=== PATIENT | male | born 1945 | race Caucasian/White ===

== ENCOUNTER 2019-10-19 07:44 | Outpatient (CLI) | payer MEDICARE, SELFPAY ==
--- NOTE | ~2019-10-19 | US_ITS ---
EXAMINATION: US aorta [facility] DATE: 10/19/2019 08:32 INDICATION: Abdominal aortic aneurysm without rupture TECHNIQUE: Grayscale, color Doppler, and pulsed Doppler images of the aorta and common iliac arteries were obtained. COMPARISON: 12/12/2015 FINDINGS: Maximum vascular dimensions are as follows: Proximal aorta: 2.6 cm Mid aorta: 3.2 cm Distal aorta: 2.0 cm Right common iliac artery: 2.0 cm Left common iliac artery: 1.8 cm There is an unchanged 3.2 cm fusiform infrarenal abdominal aortic aneurysm IMPRESSION: 1. Stable fusiform infrarenal abdominal aortic aneurysm. Reviewed, dictated and finalized at location B.
== END 2019-10-19 07:45 | disposition home or self-care (01) ==
PROVIDERS: PCP Internal Medicine; Visit Provider Nurse Practitioner
DX: I71.4 Abdominal aortic aneurysm, without rupture (principal)
CPT/HCPCS: 76706

== ENCOUNTER 2020-01-18 12:58 | Outpatient (NON) | payer MEDICARE, SELFPAY ==
[2020-01-19 20:05] LABS: SARS-CoV-2 RNA PCR Positive
== END 2020-01-18 12:59 ==
LOC: ANHCOVIDDT 13:00
PROVIDERS: Visit Provider Internal Medicine
DX: U07.1 COVID-19 (principal)
CPT/HCPCS: 87635; C9803; U0003

== ENCOUNTER 2020-03-08 00:15 | Day surgery (SDC) | payer MEDICARE, SELFPAY ==
[2020-02-21 09:45] VITALS: BMI 27.8
--- NOTE | 2020-02-21 09:52 | PC.NURSE ---
Patient tested COVID + on January 17 at [facility]. He states he was not hospitalized but had a cough and fever. Patient will not need to be retested for this procedure. COVID test canceled for 03-05-20.
[2020-03-08 06:47] VITALS: BP 133/85; PULSE 84; RESP 18; TEMP 36.3; O2SAT 100; BMI 27.8
[2020-03-08] MEDS: LACTATED RINGERS 1,000 ML 150 ML IV CONT (06:53)
--- NOTE | 2020-03-08 07:42 | WPDANESEPPF ---
Anes - Initial Pre Proc Eval Procedure: Operation Date: 03/08/20 08:00 Proposed Procedures p Colonoscopy - Lucio Carrera DO Date/Time: 03/08/20 07:42 Surgeon: Lucio Carrera DO Pre Op Diagnosis: Positive Cologuard Patient Data Age: 74 Gender: M Height: 6 ft Weight: 93 kg Last Vital Signs Temp 97.3 F L 03/08/20 06:47 Pulse 84 03/08/20 06:47 Resp 18 03/08/20 06:47 BP 133/85 03/08/20 06:47 Pulse Ox 100 03/08/20 06:47 Allergies Allergy/AdvReac Type Severity Reaction Status Date / Time Bgpynbu-Dgl-Rmj Reductase Allergy Unknown Leg cramps Verified 03/08/20 06:46 Inhibitor Home Medications Medication Instructions Recorded Confirmed Type levothyroxine 100 mcg tablet See Rx Instructions .ROUTE 10/31/19 03/08/20 Rx .COMPLEX #90 tablet metoprolol succinate 50 mg See Rx Instructions .ROUTE 10/31/19 03/08/20 Rx tablet,extended release 24 hr .COMPLEX #90 tablet famotidine 20 mg tablet 20 mg PO DAILY #90 tablet 01/04/20 03/08/20 Rx Patient hx anesthesia problems: none Family hx anesthesia problems: none PMFSH Past Medical History Medical History (Updated 03/08/20 @ 07:42 by Rajat Cordero MD) Benign essential hypertension Hypothyroidism (acquired) Mixed hyperlipidemia Family History Family History Father Cerebrovascular accident Family history of heart disease in male family member before age 55 Family history of cardiovascular disease, Onset Age: 91 Sibling Family history of malignant neoplasm Mother Family history of chronic obstructive pulmonary disease, Onset Age: 85 Social History Social History Smoking status: Never smoker Second hand tobacco smoke exposure: No Smoking end date: 02/09/77 Alcohol intake: current Drinks per week: 7 Substance use type: does not use Living arrangements: with family Spiritual care concerns: No Anes - Eval Final PreProcedure Day of Procedure 03/08/20 07:42 Patient weight: overweight Heart: regular rate and rhythm Lungs: clear to auscultation Airway: Mallampati scale class II Neurological: alert and oriented Last oral intake: >/= 8 hours ASA classification: II Emergent: no Anesthetic plan: proceed Anesthesia type and monitoring: general GIVS and standard monitoring Informed Consent: The patient's anesthetic plan and its attendant risks and benefits were discussed with the patient/family/POA. Questions were solicited and answers provided to the satisfaction of the patient/family/POA.
--- NOTE | 2020-03-08 08:04 | PM.IMHP ---
H&P: HPI History of Present Illness Date/Time: 03/08/20 08:04 Chief Complaint: Reason for visit colonoscopy. Narrative: Reason for visit is colonoscopy. This very pleasant gentleman's here at the request of the primary physician. Impression: Your very pleasant gentleman with history of colon polyps. He has a positive stool base DNA test. Does complain rectal bleeding which is most likely perianal in origin. Underlying inflammatory neoplastic disease will be excluded. GERD. HLD. HTN. Hypothyroidism. Skin cancer -melanoma. Status post excision Recommendation: Colonoscopy. History: This very pleasant gentleman is here for colonoscopy. He has remote history of colon polyps. He reports rectal bleeding which usually consists of bright red blood in the stool and tissue. The patient has a positive stool base DNA test. He has a history of reflux disease controlled with medication. Physical examination: General: very pleasant patient in no acute distress. HEENT: Head was normocephalic sclerae is clear mouth without masses neck was supple. Heart: Rate rhythm regular without S3 or S4. Lungs: CTA. Abdomen: Soft with no guarding or rigidity. Bowel sounds were active. Neurologic: Cranial nerves 2 through 12 intact. No focal defects. No clonus. Musculoskeletal system: Revealed no joint tenderness or swelling no muscle atrophy. Extremities: Reveal no significant edema. Skin: Warm and dry with normal turgor. Mental status: intact. Patient is alert and oriented. Review of Systems Review of Systems: All systems reviewed & are unremarkable except as noted in HPI and below PMFSH Past Medical History Medical History (Updated 03/08/20 @ 08:04 by Lucio Carrera DO) Adenomatous colon polyp GERD (gastroesophageal reflux disease) HLD (hyperlipidemia) HTN (hypertension) Hypothyroidism (acquired) Skin cancer Melanoma Surgical History Surgical History (Updated 03/08/20 @ 08:04 by Lucio Carrera DO) Hx laparoscopic cholecystectomy Hx of appendectomy Hx of colonoscopy Family History Family History Father Cerebrovascular accident Family history of heart disease in male family member before age 55 Family history of cardiovascular disease, Onset Age: 91 Sibling Family history of malignant neoplasm Mother Family history of chronic obstructive pulmonary disease, Onset Age: 85 Social History Social History Smoking status: Never smoker Second hand tobacco smoke exposure: No Smoking end date: 02/09/77 Alcohol intake: current Drinks per week: 7 Substance use type: does not use Living arrangements: with family Spiritual care concerns: No Meds Home Medications and Allergies Home Medications Medication Instructions Recorded Confirmed Type levothyroxine 100 mcg tablet See Rx Instructions .ROUTE 10/31/19 03/08/20 Rx .COMPLEX #90 tablet metoprolol succinate 50 mg See Rx Instructions .ROUTE 10/31/19 03/08/20 Rx tablet,extended release 24 hr .COMPLEX #90 tablet famotidine 20 mg tablet 20 mg PO DAILY #90 tablet 01/04/20 03/08/20 Rx Allergies Allergy/AdvReac Type Severity Reaction Status Date / Time Mmqnszf-Azq-Mcy Reductase Allergy Unknown Leg cramps Verified 03/08/20 06:46 Inhibitor Vital Signs Vital Signs - 24 hr 03/08/20 06:47 Temperature 36.3 C L Pulse Rate 84 Respiratory Rate 18 Blood Pressure 133/85 Pulse Oximetry 100
[2020-03-08 08:53] VITALS: BP 101/63; PULSE 68; RESP 20; O2SAT 97
[2020-03-08 09:03] VITALS: BP 105/65; PULSE 58; RESP 20; O2SAT 97
[2020-03-08 09:13] VITALS: BP 119/79; PULSE 66; RESP 20; O2SAT 98
== END 2020-03-08 09:24 | disposition home or self-care (01) ==
PROVIDERS: Family Provider Internal Medicine; PCP Internal Medicine; Visit Provider Internal Medicine Gastroenterology
PROC: 0DJD8ZZ Inspection of Lower Intestinal Tract, Via Natural or Artificial Opening Endoscopic (ICD-10-PCS; CPT 45378; principal; 2020-03-08 08:00)
DX: R19.5 Other fecal abnormalities (principal); D12.5 Benign neoplasm of sigmoid colon; D12.8 Benign neoplasm of rectum; D12.3 Benign neoplasm of transverse colon; K63.5 Polyp of colon; K62.1 Rectal polyp; K57.30 Diverticulosis of large intestine without perforation or abscess without bleeding; K64.8 Other hemorrhoids; I10 Essential (primary) hypertension; E78.2 Mixed hyperlipidemia; E03.9 Hypothyroidism, unspecified; K21.9 Gastro-esophageal reflux disease without esophagitis; Z85.820 Personal history of malignant melanoma of skin
CPT/HCPCS: 45380; 45385; 88305; J2704; J7120

== ENCOUNTER → 2020-04-03 10:34 | Outpatient (CLI) | payer MEDICARE, SELFPAY ==
--- NOTE | ~2020-04-03 | XR_ITS ---
XR ankle RT min 3V DATE: 04/03/2020 10:51 INDICATION: Right ankle effusion TECHNIQUE: 4 views COMPARISON: None FINDINGS: There is mild plantar calcaneal enthesopathy. There are some calcifications apparently gayathri g the plantar aponeurosis. There is mild medial soft tissue swelling. No fracture or dislocation of the ankle or disruption of the ankle mortise. IMPRESSION: Mild plantar calcaneal enthesopathy Reviewed, dictated and finalized at location A. RVATIONS SALES AGENT
== END ==
PROVIDERS: PCP Internal Medicine; Visit Provider Nurse Practitioner
DX: M25.471 Effusion, right ankle (principal); M77.31 Calcaneal spur, right foot
CPT/HCPCS: 73610

== ENCOUNTER 2022-01-13 08:58 | Outpatient (CLI) | payer MEDICARE, SELFPAY ==
--- NOTE | ~2022-01-13 | US_ITS ---
EXAMINATION: US aorta DATE: 01/13/2022 12:36 HEAD OF PRECISION TARGETING INDICATION: Low back pain TECHNIQUE: Grayscale, color Doppler, and pulsed Doppler images of the aorta and common iliac arteries were obtained. COMPARISON: No prior studies for comparison. . FINDINGS: The proximal aorta measures 2.2 cm greatest sagittal dimension. The mid aorta measures 2.9 cm greates t sagittal dimension. The distal aorta measures 2.2 cm greatest dimension sagittal dimension. The rig ht common internal iliac artery measures 1.1 cm. The left common iliac artery measures 1.1 cm. IMPRESSION: 1. Atherosclerosis of the aorta without evidence for aneurysm. Reviewed, dictated and finalized at location A. OF PRECISION TARGETING
== END 2022-01-13 08:59 | disposition home or self-care (01) ==
PROVIDERS: PCP Internal Medicine; Visit Provider Internal Medicine
DX: I71.40 Abdominal aortic aneurysm, without rupture, unspecified (principal); I70.0 Atherosclerosis of aorta
CPT/HCPCS: 76775

== ENCOUNTER 2024-03-01 07:24 | Outpatient (CLI) | payer OTHER, SELFPAY ==
[2024-03-01 07:46] LABS: Hematocrit 44.2 % (42.0-52.0); Hemoglobin 15.3 g/dL (14.0-18.0); Mean Corpuscular HGB Conc 34.6 g/dl (32-36); Mean Corpuscular Hemoglobin 30.5 pg (26-34); Mean Corpuscular Volume 88.2 fl (80-100); Mean Platelet Volume 9.3 fl (7.4-10.4); Platelet Count Result 168 k/mm3 (150-375); Red Blood Count 5.01 M/mm3 (4.6-6.20); Red Cell Distribution Width 12.8 % (11.5-14.5); White Blood Count 5.6 K/mm3 (4.5-10.0)
[2024-03-01 08:50] LABS: Alanine Aminotransferase 17 U/L (6-50); Albumin Level 4.3 g/dL (3.5-5.1); Alkaline Phosphatase 62 U/L (38-126); Anion Gap 8 mmol/L (4-12); Aspartate Amino Transferase 23 U/L (17-59); Bilirubin,Total 0.8 mg/dL (0.2-1.3); Blood Urea Nitrogen 21 mg/dL (9-20); Calcium 9.3 mg/dL (8.4-10.2); Carbon Dioxide 25 mmol/L (22-30); Chloride 103 mmol/L (98-107); Cholesterol 255 mg/dL (0-200); Estimated Glomerular Filt Rate > 60; Glucose 107 mg/dL (65-110); HDL Direct 52 mg/dL; Sodium 136 mmol/L (137-145); Triglycerides 124 mg/dL (<150)
[2024-03-01 09:01] LABS: LDL Cholesterol Direct 166 mg/dL
[2024-03-01 09:21] LABS: Prostate Specific Antigen 2.4 ng/mL (< OR = 4.0)
--- OUTSIDE RECORDS SUMMARY | 2024-03-03 15:34 | XMS_ITS | Clinical Summary ---
Author Organization [facility] Address [address] [place] [address]. [place], [place] [address] [place] [address] Care Team Providers Care Emergency Medicine Nurse Practitioner Name Role Phone Unavailable Primary Care Provider Unavailabl e Social History Tobacco Use Types Packs/Day Years Used Date Smoking Tobacco: Never Assessed Sex and Gender Information Value Date Recorded Sex Assigned at Not on file Legal Sex Male 7:05 PM CDT Gender Identity Not on file Sexual Orientation Not on file Plan of Treatment Health Maintenance Due Date Last Done Comments Hepatitis C 05/25/1965 DTaP, Tdap and Td Vaccines ( 1 - Tdap) 05/25/1966 Zoster Vaccines (1 of 2) 05/25/1997 Pneumococcal Vaccine: 65+ Ye ars (1 of 1 - PCV) 05/25/2012 RSV Immunization or 60+ Years (1 - 1-dose 75+ series) 05/25/2022 COVID-19 Vaccine ( - 2023-2 5 season) 2023 Influenza Adult (#1) 2023 Meningococcal Vaccine Aged Out No oskar norma eligible based on patient's age to complete this topic RSV Immunizations Under 20 Months Aged Out No longer eligible based on patient's age to complete this topic
--- OUTSIDE RECORDS SUMMARY | 2024-03-03 15:34 | XMS_ITS | Patient Health Summary ---
Author Organization [facility] Address [address] [place] [address] Care Team Providers Care Taper/Finisher Name Role Phone Urban Martínez MD Unavailable [phone] Urban Martínez MD Primary Care Provider [phone] Rafael Bernal MD Unavailable Unavailable [facility]non-owned Affiliates and Associated Physician Practices is amultiple site organization consisting of ambulatory clinics and hospital sitesin [place], [place], [place] and [place]. This disclosure is being madepursuant to the Care Everywhere program and may not contain all information available regarding this patient. Last updated 17.[facility] Allergies No known active allergies Medications * Be aware that medications may not be up to date on this document. Alwaysverify current medications with the patient. * NIACIN PO daily. * colesevelam (WELCHOL) 625 MG tablet(Started 12/20/2009) Take 1,875 mg by mouth 2 times daily with breakfast and dinner. * ezetimibe (ZETIA) 10 MG tablet daily. * metoprolol succinate XL 24hr (TOPROL XL) 50 MG tablet 2 times daily. * aspirin 325 MG tablet Take 325 mg by mouth daily. * [place]-3 Fatty Acids (FISH OIL PO)(Started 12/20/2009) Take 1 Tab by mouth daily. * multivitamin daily (THERAGRAN) tablet Take 1 Tab by mouth daily with food. * levothyroxine (SYNTHROID) 100 MCG tablet Take 100 mcg by mouth daily before breakfast. * meloxicam (MOBIC) 15 MG tablet(Started 04/26/2012) Take 1 Tab by mouth once daily. 2 refills left Active Problems Problem Noted Date Diagnosed Date Plantar fasciitis 04/26/2012 Chest pain 12/20/2009 Social History Tobacco Use Types Packs/Day Years Used Date Smoking Tobacco: Never Smokeless Tobacco: Never Alcohol Use Standard Drinks/Week Comments Yes 0 (1 standard drink = 0.6 oz pur e alcohol) 1-2 glasses per night of wine Sex and Gender Information Value Date Recorded Sex Assigned at Not on file Gender Identity Not on file Sexual Orientation Not on file Last Filed Vital Signs Vital Sign Reading Time Taken Comments Blood Pressure 125/85 01/05/2012 9:00 AM HEAVY LIFT RIGGER Pulse 52 01/05/2012 9:00 AM HEAVY LIFT RIGGER Temperature 36.8 ??C (98.2 ??F) 12/20/2009 9:23 PM CS T Respiratory Rate 18 01/05/2012 7:34 AM HEAVY LIFT RIGGER Oxygen Saturation 96% 01/05/2012 8:50 AM HEAVY LIFT RIGGER Inhaled Oxygen Concentration - - Weight 95.3 kg (210 lb) 04/26/2012 3:17 PM CDT Height 180.3 cm (5' 11 ) 04/26/2012 3:17 PM CDT Body Mass Index 29.29 04/26/2012 3:17 PM CDT Procedures * XR FOOT LEFT 3VW OR MORE(Performed 04/26/2012) Performed for Plantar fasciitis * GROSS + MICRO EXAM(Performed 01/05/2012) * GROSS + MICRO EXAM(Performed 01/05/2012) * ENDOSCOPY, COLON, SCREENING(Performed 01/05/2012) * CARDIAC EKG ORDER(Performed 12/24/2009) * CARDIAC EKG ORDER(Performed 12/21/2009) * XR CHEST 1VW PORTABLE(Performed 12/20/2009) Performed for Chest pain * PTT(Performed 12/20/2009) * PT-INR(Performed 12/20/2009) * MAGNESIUM BLOOD(Performed 12/20/2009) * MYOGLOBIN BLOOD(Performed 12/20/2009) * TROPONIN I(Performed 12/20/2009) * COMPREHENSIVE METABOLIC PANEL(Performed 12/20/2009) * CBC W AUTO DIFFERENTIAL(Performed 12/20/2009) * GROSS + MICRO EXAM(Performed 12/17/2009) * GROSS + MICRO EXAM(Performed 12/14/2009) Results * XR FOOT 3+ VW LEFT (04/26/2012 3:54 PM CDT) Anatomical Region Laterality Modality Ankle / Foot Radiographic Prudence ging Narrative 04/26/2012 3:55 PM CDT RT Phan(R) ? 04/26/2012 ??3:55 PM Please see office note for result. Procedure Note Anh Mckenzie, RT(R) - 04/26/2012 3:54 PM CDT Please see office note for result. Jatin Hare DO DIAGNOSTIC IMAGING O RDERABLES * GROSS + MICRO EXAM (01/05/2012 8:30 AM HEAVY LIFT RIGGER) Only the most recent of4 resultswithin the time period is included. Result CASE NUMBER [id number] Comment: ORDERING PHYSICIAN ??LAMIN GRAY SPECIMEN TYPE ?Colon Date ? 01/05/2012 Physician ?Lamin Gray Gross Description ? The specimen is received in two containers labeled with the patient's name Jesse Jasso. The first container is labeled ascending colon polyp . It consists of a 1 mm fragment of valladares-red tissue stained and submitted in A. The second container is labeled hepatic flexure polyp . ??It consists of two 1 mm fragments of valladares tissue stained and submitted in B. LL/scs Microscopic Exam ? The ascending and hepatic flexure polyps are adenomatous polyps with no high grade dysplasia. MM/mal Diagnosis ? 1. ??Ascending colon, polyp, biopsy -- ??Adenomatous polyp. 2. ??Hepatic flexure, polyp, biopsy -- ??Adenomatous polyp. MM/mal Plumbing Technician ? CHEY JOHNSON. Pathologist ?Jaycee Echeverria MD CPT code ? 41187 x2 Performed By ? [facility], [facility] at [facility], [address] [place] [address] MISCELLANEOUS SAMPLES / Unknown 01/05/2012 8:30 AM HEAVY LIFT RIGGER 01/05/2012 1:58 PM HEAVY LIFT RIGGER Historical Provider LAB - PATHOLOGY/C YTOLOGY ORDERABLES * ENDOSCOPY, COLON, SCREENING (01/05/2012 8:27 AM HEAVY LIFT RIGGER) Narrative [facility] - 01/05/2012 8:27 AM HEAVY LIFT RIGGER Procedure Note Lamin Gray MD - 01/05/2012 8:27 AM CST Lamin Gray MD GI PROCEDURE ORDERAB LES [facility] * CARDIAC EKG ORDER (12/24/2009 10:32 AM HEAVY LIFT RIGGER) Only the most recent of2 resultswithin the time period is included. Narrative Procedure Note Document, Scanned - 12/24/2009 7:12 AM HEAVY LIFT RIGGER Scanned Document CARDIAC SERVICES ORD ERABLES * XR CHEST 1VW PORTABLE (12/20/2009 8:21 PM HEAVY LIFT RIGGER) Anatomical Region Laterality Modality Chest Radiographic Prudence ging 12/20/2009 8:46 PM HEAVY LIFT RIGGER Impressions 12/20/2009 8:57 PM HEAVY LIFT RIGGER No evidence of active cardiopulmonary disease. Narrative 12/20/2009 8:57 PM HEAVY LIFT RIGGER PORTABLE CHEST from 12/20/2009 INDICATION: Chest pain. Portable AP radiograph of the chest was obtained. The heart and mediastinum are within normal limits. The lungs are well expanded and are clear. Procedure Note Jesús Bethea MD - 12/20/2009 PORTABLE CHEST from 12/20/2009 INDICATION: Chest pain. Portable AP radiograph of the chest was obtained. The heart and mediastinum are within normal limits. The lungs are well expanded and are clear. IMPRESSION No evidence of active cardiopulmonary disease. Dawit Tate MD DIAGNOSTIC IMAGING ORDERABLES * TROPONIN I (12/20/2009 7:00 PM HEAVY LIFT RIGGER) [facility] Troponin I <0.10 SEE BELOW ng/ml [facility] Comment: Normal ? <0.10 Pretty Zone ??0.10-0.99 Positive ?? >=1.00 SERUM OR PLASMA SPECIMEN / Unknown 12/20/2009 7:00 PM HEAVY LIFT RIGGER 12/20/2009 7:19 PM HEAVY LIFT RIGGER Dawit Tate MD LAB - CHEMISTRY OR DERABLES Performing Organization Address [facility] de Phone Number [facility] [id number] [place] [address] * MYOGLOBIN BLOOD (12/20/2009 7:00 PM HEAVY LIFT RIGGER) [facility] Myoglobin 26.5 0.0 - 110.0 ng/ml [facility] SERUM OR PLASMA SPECIMEN / Unknown 12/20/2009 7:00 PM HEAVY LIFT RIGGER 12/20/2009 7:19 PM HEAVY LIFT RIGGER Dawit Tate MD LAB - CHEMISTRY OR DERABLES Performing Organization Address [facility] Phone Number [facility] [id number] [place] [phone] * PTT (12/20/2009 7:00 PM HEAVY LIFT RIGGER) [facility] PTT 25.9 24.0 - 32.0 seconds [facility] BLOOD SPECIMEN / Unknown 12/20/2009 7:00 PM HEAVY LIFT RIGGER 12/20/2009 7:19 PM HEAVY LIFT RIGGER Dawit Tate MD LAB - COAGULATION ORDERABLES Performing Organization Address [facility] de Phone Number [facility] [id number] [place] [address] * PT-INR (12/20/2009 7:00 PM HEAVY LIFT RIGGER) [facility] PT 9.4 9.4 - 11.2 seconds [facility] INR 0.9 SEE BELOW [facility] Comment: 0.9-1.1 Normal 2.0-3.0 Conventional 2.5-3.5 Intensive BLOOD SPECIMEN / Unknown 12/20/2009 7:00 PM HEAVY LIFT RIGGER 12/20/2009 7:19 PM HEAVY LIFT RIGGER Dawit Tate MD LAB - COAGULATION ORDERABLES [facility] [address] [place] [address] * CBC W AUTO DIFFERENTIAL (12/20/2009 7:00 PM HEAVY LIFT RIGGER) [facility] WBC 5.1 4.5 - 11.0 1000/mm3 [facility] RBC 4.90 4.7 - 6.1 10X6 [facility] Hemoglobin 14.5 13.0 - 18.0 gm/dl [facility] Hematocrit 41.1 39.0 - 54.0 % [facility] MCV 83.9 80.0 - 99.0 fl [facility] MCH 29.6 25.0 - 31.0 pg [facility] MCHC 35.3 32.0 - 36.0 gm/dl [facility] RDW 13.4 11.5 - 14.5 % [facility] Platelet Count 173 130.0 - 400.0 1000/mm3 [facility] Granulocytes % 56.7 40.0 - 70.0 % [facility] Lymphocytes % 33.0 22.0 - 40.0 % [facility] Monocytes % 7.5 2.0 - 10.0 % [facility] Eosinophils % 2.4 0.0 - 6.0 % [facility] Basophils % 0.4 0.0 - 3.0 % [facility] Granulocytes Absolute 2.89 1.8 - 7.7 [facility] Lymphocytes Absolute 1.68 1.0 - 5.4 [facility] Monocytes Absolute 0.38 0.1 - 1.1 [facility] Eosinophils Absolute 0.12 0.0 - 0.7 [facility] Basophils Absolute 0.02 0.0 - 0.2 [facility] Comment Manual Diff Not Indicated [facility] BLOOD SPECIMEN / Unknown 12/20/2009 7:00 PM HEAVY LIFT RIGGER 12/20/2009 7:19 PM HEAVY LIFT RIGGER Dawit Tate MD LAB - HEMATOLOGY O RDERABLES Performing Organization Address [facility] Co de Phone Number [facility] [address] [place] [address] * COMPREHENSIVE METABOLIC PANEL (12/20/2009 7:00 PM HEAVY LIFT RIGGER) BUN 18 9.0 - 20.0 mg/dl [facility] Sodium 141 137 - 145 mmol/L [facility] Potassium 4.6 3.6 - 5.0 mmol/L [facility] Chloride 105 98.0 - 107.0 mmol/L [facility] Glucose 84 75 - 110 mg/dl [facility] Creatinine 1.2 0.66 - 1.25 mg/dl [facility] AST 44 17.0 - 59.0 U/L [facility] Alkaline Phosphatase 114 38.0 - 126.0 U/L [facility] Calcium 9.7 8.4 - 10.2 mg/dl [facility] Bilirubin Total 0.4 0.2 - 1.3 mg/dl [facility] Albumin 4.5 3.5 - 5.0 gm/dl [facility] Protein Total 7.6 6.3 - 8.2 gm/dl [facility] CO2 27 22.0 - 30.0 mEq/L [facility] ALT 36 21.0 - 72.0 U/L [facility] eGFR by MDRD 61.35 ml/min/1.7 3m2 [facility] BLOOD SPECIMEN / Unknown 12/20/2009 7:00 PM HEAVY LIFT RIGGER 12/20/2009 7:19 PM HEAVY LIFT RIGGER Dawit Tate MD LAB - CHEMISTRY OR DERABLES Performing Organization Address [facility] Co de Phone Number [facility] [address] [place] [address] * MAGNESIUM BLOOD (12/20/2009 7:00 PM HEAVY LIFT RIGGER) Magnesium 2.2 1.6 - 2.3 mg/dl [facility] BLOOD SPECIMEN / Unknown 12/20/2009 7:00 PM HEAVY LIFT RIGGER 12/20/2009 7:19 PM HEAVY LIFT RIGGER Dawit Tate MD LAB - CHEMISTRY OR DERABLES [facility] [address] [place] [address] Care Teams Taper/Finisher Relationship Specialty Start Date End Date Urban Martínez MD [address] [place] [id number] PCP - General 12/20/09 Urban Martínez MD Internal Medicine 12/10/09 Rafael Bernal MD General Surgery 05/26/11
--- OUTSIDE RECORDS SUMMARY | 2024-03-03 15:34 | XMS_ITS | Referral Summary ---
Author Organization [facility] Address [address] [place] [address] Care Team Providers Care Sole Stitcher Hand Name Role Phone Urban Martínez MD Unavailable [phone] Urban Martínez MD Primary Care Provider [phone] Rafael Bernal MD Unavailable Unavailable Source Comments [facility],non-owned Affiliates and Associated Physician Practices is amultiple site organization consisting of ambulatory clinics and hospital sitesin [place], [place], [place] and [place]. This disclosure is being madepursuant to the Care Everywhere program and may not contain all information available regarding this patient. Last updated 17.[facility] [employer] Allergies No known active allergies Medications * Be aware that medications may not be up to date on this document. Alwaysverify current medications with the patient. Medication Sig Dispensed Refills Start Date End Date Status NIACIN PO daily. Active colesevelam (WELCHOL) 625 MG tablet Take 1,875 mg by mouth 2 times daily with breakfast and dinner. 12/20/2009 Active ezetimibe (ZETIA) 10 MG tablet daily. Active metoprolol succinate XL 24hr (TOPROL XL) 50 MG tablet 2 times daily. Active aspirin 325 MG tablet Take 325 mg by mouth daily. Active [place]-3 Fatty Acids (FISH OIL PO) Take 1 Tab by mouth daily. 12/20/2009 Active multivitamin daily (THERAGRAN) tablet Take 1 Tab by mouth daily with food. Active levothyroxine (SYNTHROID) 100 MCG tablet Take 100 mcg by mouth daily before breakfast. Active meloxicam (MOBIC) 15 MG tablet Take 1 Tab by mouth once daily. 30 Tab 2 04/26/2012 Active Active Problems Problem Noted Date Diagnosed Date [...] Comments Blood Pressure 125/85 01/05/2012 9:00 AM LEASE OUT WORKER Pulse 52 01/05/2012 9:00 AM LEASE OUT WORKER Temperature 36.8 ??C (98.2 ??F) 12/20/2009 9:23 PM CS T Respiratory Rate 18 01/05/2012 7:34 AM LEASE OUT WORKER Oxygen Saturation 96% 01/05/2012 8:50 AM LEASE OUT WORKER Inhaled Oxygen Concentration - - Weight 95.3 kg (210 lb) 04/26/2012 3:17 PM CDT Height 180.3 cm (5' 11 ) 04/26/2012 3:17 PM CDT Body Mass Index 29.29 04/26/2012 3:17 PM CDT Plan of Treatment Not on file Care Teams Sole Stitcher Hand Relationship Specialty Start Date End Date Urban Martínez MD [address] [place] [id number] PCP - General 12/20/09 Urban Martínez MD Internal Medicine 12/10/09 Rafael Bernal MD General Surgery 05/26/11
--- OUTSIDE RECORDS SUMMARY | 2024-03-03 15:34 | XMS_ITS | Clinical Summary ---
Author Organization [facility] Address [address] [place] [address] Care Team Providers Care Entertainment Centre Manager Name Role Phone Urban Martínez MD Unavailable [phone] Urban Martínez MD Primary Care Provider [phone] Rafael Bernal MD Unavailable Unavailable Source Comments [facility],non-owned Affiliates and Associated Physician Practices is amultiple site organization consisting of ambulatory clinics and hospital sitesin [place], [place], [place] and [place]. This disclosure is being madepursuant to the Care Everywhere program and may not contain all information available regarding this patient. Last updated 17.[facility] Allergies No known active allergies Medications * [...] Take 325 mg by mouth daily. Active Lorenzo-3 Fatty Acids (FISH OIL PO) Take 1 [...] Comments Blood Pressure 125/85 01/05/2012 9:00 AM COMPUTER APPLICATIONS ENGINEER Pulse 52 01/05/2012 9:00 AM COMPUTER APPLICATIONS ENGINEER Temperature 36.8 ??C (98.2 ??F) 12/20/2009 9:23 PM CS T Respiratory Rate 18 01/05/2012 7:34 AM COMPUTER APPLICATIONS ENGINEER Oxygen Saturation 96% 01/05/2012 8:50 AM COMPUTER APPLICATIONS ENGINEER Inhaled Oxygen Concentration - - Weight 95.3 kg (210 lb) 04/26/2012 3:17 PM CDT Height 180.3 cm (5' 11 ) 04/26/2012 3:17 PM CDT Body Mass Index 29.29 04/26/2012 3:17 PM CDT Plan of Treatment Health Maintenance Due Date Last Done Comments HEPATITIS C SCREENING 05/21/1965 DTAP/TDAP/TD VACCINES (1 - Tdap) 05/25/1966 PNEUMOCOCCAL VACCINE 50+ (1 of 1 - PCV) 05/25/1997 ZOSTER VACCINE (1 of 2) 05/25/1997 Respiratory Syncytial Virus (RSV) Vaccine Pt: or over 60 yrs (1 - 1-dose 75+ series) 05/25/2022 COVID-19 VACCINE ( - 2023-2 5 season) 2023 INFLUENZA VACCINE (#1) 2023 DEPRESSION SCREENING 02/10/2024 HEPATITIS B VACCINE Aged Out No longe r eligible based on patient's age to complete this topic HIB VACCINE Aged Out No longer eligi ble based on patient's age to complete this topic HPV VACCINE Aged Out No longer eligi ble based on patient's age to complete this topic MENINGOCOCCAL (Group B) VACCINE Aged Out No longer eligible based on patient's age to complete this topic MENINGOCOCCAL VACCINE Aged Out No oskar norma eligible based on patient's age to complete this topic Care Teams Entertainment Centre Manager Relationship Specialty Start Date End Date Urban Martínez MD [address] [place] [id number] PCP - General 12/20/09 Urban Martínez MD Internal Medicine 12/10/09 Rafael Bernal MD General Surgery 05/26/11
== END 2024-03-01 07:25 | disposition home or self-care (01) ==
LOC: ANHLAB 07:27
PROVIDERS: PCP Internal Medicine; Visit Provider Internal Medicine
DX: Z12.5 Encounter for screening for malignant neoplasm of prostate (principal); E78.5 Hyperlipidemia, unspecified; E03.9 Hypothyroidism, unspecified; E78.49 Other hyperlipidemia
CPT/HCPCS: 36415; 80053; 80061; 84153; 84443; 85027; G0103

== ENCOUNTER 2024-09-01 06:56 | Outpatient (CLI) | payer OTHER, SELFPAY ==
--- OUTSIDE RECORDS SUMMARY | 2024-09-01 07:05 | XMS_ITS | Clinical Summary ---
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 Gender Identity Not on file Sexual Orientation Not on file Plan of Treatment Health Maintenance Due Date Last Done Comments Hepatitis C Virus (HCV) Screening 1945 TdaP Immunization 1945 Pneumococcal Immunization (5 0+ years) (1 of 1 - PCV) 05/25/1997 Zoster Immunization (1 of 2) 05/25/1997 Respiratory Syncytial Virus (RSV) Immunization (Adult) (1 - 1-dose 75+ series) 05/25/2022 SARS-COV-2 Immunization ( season) 2023 02/11/2021, 04/15/2020, 03/24/2020 Influenza Immunization (#1) 2024 Colonoscopy Discontinued 03/08/2020 Colorectal Cancer Screening Discontinued Cologuard Discontinued Hepatitis B Immunization Aged Out No longer eligible based on patient's age to complete this topic Human Papillomavirus (HPV) Immunization Aged Out No longer eligible based on patient's age to complete this topic Immunochemical Fecal Occult Blood Discontinued Meningococcal Immunization (ACWY) Aged Out No longer eligible based on patient's age to complete this topic Rotavirus Immunization Aged Out No lo nger eligible based on patient's age to complete this topic Procedures Procedure Name Priority Date/Time Associated Diagnosis Comments HM COLONOSCOPY Routine 03/08/2020 from Last 3 Months or Most Recently Relevant to Health Maintenance Results * COLONOSCOPY (03/08/2020) Lucio Carrera DO PROCEDURE/MINOR SURGICAL ORDERA BLES Final Result from Last 3 Months or Most Recently Relevant to Health Maintenance Insurance MEDICARE C [facility] on file Care Teams Sales Secretary Relationship Specialty Start Date End Date Rahul Fuentes DO [address] [place] [address] PCP - General Internal Medicine 12/20/19
--- OUTSIDE RECORDS SUMMARY | 2024-09-01 07:06 | XMS_ITS | Clinical Summary ---
Author Organization [facility] Address [address] [place] [address] Care Team Providers Care Internet Consultant Name Role Phone Urban Martínez MD Unavailable [phone] Urban Martínez MD Primary Care Provider [phone] Rafael Bernal MD Unavailable Unavailable Source Comments [facility],non-owned Affiliates and Associated Physician Practices is amultiple site organization consisting of ambulatory clinics and hospital sitesin [place], [place], [place] and [place]. This disclosure is being madepursuant to the Care Everywhere program and may not contain all information available regarding this patient. Last updated 17.[facility] Allergies No known active allergies Medications * Be aware that medications may not be up to date on this document. Alwaysverify current medications with the patient. NIACIN PO daily. Active colesevelam (WELCHOL) 625 MG tablet Take 1,875 mg by mouth 2 times daily with breakfast and dinner. 0 Active ezetimibe (ZETIA) 10 MG tablet daily. Active metoprolol succinate XL 24hr (TOPROL XL) 50 MG tablet 2 times daily. Activ e aspirin 325 MG tablet Take 325 mg by mouth daily. Active [place]-3 Fatty Acids (FISH OIL PO) Take 1 Tab by mouth daily. 0 Active multivitamin daily (THERAGRAN) tablet Take 1 Tab by mouth daily with food. Active levothyroxine (SYNTHROID) 100 MCG tablet Take 100 mcg by mouth daily before breakfast. Active meloxicam (MOBIC) 15 MG tablet Take 1 Tab by mouth once daily. 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 on file Not on file Not on arlin e Last Filed Vital Signs Vital Sign Reading Time Taken Comments Blood Pressure 125/85 01/05/2012 9:00 AM ARABIC TEACHER Pulse 52 01/05/2012 9:00 AM ARABIC TEACHER Temperature 36.8 C (98.2 F) 12/20/2009 9:23 PM ARABIC TEACHER Respiratory Rate 18 01/05/2012 7:34 AM ARABIC TEACHER Oxygen Saturation 96% 01/05/2012 8:50 AM ARABIC TEACHER Inhaled Oxygen Concentration - - Weight 95.3 kg (210 lb) 04/26/2012 3:17 PM CDT Height 180.3 cm (5' 11) 04/26/2012 3:17 PM CDT Body Mass Index [...] - 1-dose 75+ series) 05/25/2022 COVID-19 VACCINE (1 - 2023-2 5 season) 2023 DEPRESSION SCREENING 02/10/2024 INFLUENZA VACCINE (#1) 2024 HEPATITIS B VACCINE Aged Out No longe r eligible based on patient's age to complete this topic HIB VACCINE Aged Out No longer eligi ble based on patient's age to complete this topic HPV VACCINE Aged Out No longer eligi ble based on patient's age to complete this topic MENINGOCOCCAL (Group B) VACC INE SHARED DECISION-MAKING Aged Out No longer eligibl e based on patient's age to complete this topic MENINGOCOCCAL GROUPS A/C/Y/W VACCINE Aged Out No longer eligible b ased on patient's age to complete this topic Insurance [facility] UHC MANAGED MEDICARE ADV Care Teams Internet Consultant Relationship Specialty Start Date End Date Urban Martínez MD [address] [place] [address] PCP - General 12/20/09 Urban Martínez MD Internal Medicine 12/10/09 Rafael Bernal MD General Surgery 05/26/11
--- OUTSIDE RECORDS SUMMARY | 2024-09-01 07:06 | XMS_ITS | Clinical Summary ---
Author Organization [facility] Address [address] [place] [id number] Care Team Providers Care Ammonia Refrigeration Technician Name Role Phone Unavailable Primary Care Provider [...] Td Vaccines ( 1 - Tdap) 05/25/1966 Pneumococcal Vaccine: 50+ Ye ars (1 of 1 - PCV) 05/25/1997 Zoster Vaccines (1 of 2) 05/25/1997 RSV Immunization or 60+ Years (1 - 1-dose 75+ series) 05/25/2022 COVID-19 Vaccine ( - 2023-2 5 season) 2023 Meningococcal B Vaccine Aged Out No l onger eligible based on patient's age to complete this topic Meningococcal Vaccine Aged Out No oskar norma eligible based on patient's age to complete this topic RSV Immunizations Under 20 Months Aged Out No longer eligible based on patient's age to complete this topic
--- OUTSIDE RECORDS SUMMARY | 2024-09-01 07:06 | XMS_ITS | Continuity of Care Document ---
Author Organization [facility] Address [address] [place] [address] [place] [address] Phone Care Team Providers Care Advertising Writer Name Role Phone Aris PTReji Unavailable Unavailable Procedures Procedure Date Therapeutic Activities Neuromuscular Re-Ed Therapeutic Exercise Therapeutic Activities Neuromuscular Re-Ed Therapeutic Exercise Therapeutic Activities Neuromuscular Re-Ed Therapeutic Exercise Therapeutic Activities Neuromuscular Re-Ed Therapeutic Exercise Doc neg elder mal no plan PT Evaluation Low Complexity Therapeutic Activities Therapeutic Exercise Progress Note Therapeutic Activities Manual Therapy Therapeutic Activities Manual Therapy Therapeutic Activities Manual Therapy Therapeutic Activities Manual Therapy Therapeutic Activities Manual Therapy Therapeutic Activities Manual Therapy Therapeutic Activities Manual Therapy Progress Note Therapeutic Activities Manual Therapy Therapeutic Activities Manual Therapy Therapeutic Activities Manual Therapy Therapeutic Activities Manual Therapy Therapeutic Activities Manual Therapy Therapeutic Activities Manual Therapy Therapeutic Activities Manual Therapy Therapeutic Activities Therapeutic Exercise Doc neg elder mal no plan PRES/ABSN URINE INCON ASSESS Identified as not an unhealthy alcohol u ser Not identified as unhealthy alcohol via screening OT Evaluation High Complexity Therapeutic Exercise PT Evaluation Moderate Complexity Therapeutic Activities Therapeutic Exercise PT Evaluation Moderate Complexity Therapeutic Exercise Manual Therapy Therapeutic Exercise Neuromuscular Re-Ed Therapeutic Activities Therapeutic Exercise Therapeutic Activities Neuromuscular Re-Ed Therapeutic Exercise Manual Therapy Therapeutic Activities Neuromuscular Re-Ed Therapeutic Exercise Manual Therapy Therapeutic Activities Neuromuscular Re-Ed Manual Therapy Therapeutic Exercise Therapeutic Activities Neuromuscular Re-Ed Therapeutic Exercise Manual Therapy Therapeutic Activities Manual Therapy Therapeutic Exercise Neuromuscular Re-Ed Therapeutic Activities Therapeutic Exercise Manual Therapy Neuromuscular Re-Ed Therapeutic Activities Therapeutic Exercise Neuromuscular Re-Ed Manual Therapy Therapeutic Activities Therapeutic Exercise Neuromuscular Re-Ed Manual Therapy Therapeutic Activities Manual Therapy Therapeutic Exercise Neuromuscular Re-Ed Neuromuscular Re-Ed Manual Therapy Therapeutic Exercise Neuromuscular Re-Ed Therapeutic Exercise Manual Therapy Neuromuscular Re-Ed Dry Needling 1-2 muscles Manual Therapy Therapeutic Exercise Neuromuscular Re-Ed Manual Therapy Therapeutic Exercise Neuromuscular Re-Ed Therapeutic Exercise Manual Therapy PT Evaluation Moderate Complexity Manual Therapy Therapeutic Exercise DKSA Therapeutic Activities Neuromuscular Re-Ed Therapeutic Exercise Therapeutic Activities Neuromuscular Re-Ed Therapeutic Exercise Therapeutic Activities Neuromuscular Re-Ed Therapeutic Exercise Therapeutic Activities Neuromuscular Re-Ed Therapeutic Exercise Manual Therapy Therapeutic Activities Neuromuscular Re-Ed Therapeutic Exercise Manual Therapy Therapeutic Activities Neuromuscular Re-Ed Therapeutic Exercise Manual Therapy Therapeutic Activities Neuromuscular Re-Ed Therapeutic Exercise Manual Therapy Therapeutic Activities Neuromuscular Re-Ed Therapeutic Exercise Manual Therapy PT Evaluation Low Complexity Manual Therapy Therapeutic Exercise HEP Follow Up Therapeutic Exercise Therapeutic Activities Neuromuscular Re-Ed Therapeutic Exercise Therapeutic Activities Neuromuscular Re-Ed Manual Therapy Therapeutic Exercise Therapeutic Activities Neuromuscular Re-Ed Manual Therapy Therapeutic Exercise Neuromuscular Re-Ed Therapeutic Activities Manual Therapy Therapeutic Exercise Therapeutic Activities Neuromuscular Re-Ed Manual Therapy Progress Note Therapeutic Exercise Neuromuscular Re-Ed Therapeutic Activities Manual Therapy Therapeutic Exercise Therapeutic Activities Neuromuscular Re-Ed Manual Therapy Therapeutic Exercise Therapeutic Activities Neuromuscular Re-Ed Manual Therapy Therapeutic Exercise Therapeutic Activities Neuromuscular Re-Ed Manual Therapy Therapeutic Exercise Therapeutic Activities Neuromuscular Re-Ed Manual Therapy Therapeutic Exercise Therapeutic Activities Neuromuscular Re-Ed Manual Therapy Therapeutic Exercise Therapeutic Activities Neuromuscular Re-Ed Manual Therapy Therapeutic Exercise Therapeutic Activities Neuromuscular Re-Ed Manual Therapy PT Evaluation Moderate Complexity Therapeutic Exercise Therapeutic Activities Neuromuscular Re-Ed Advance Directives Directive Yes / No Effective Date File Name No Information Encounters Encounter Description Practice Location Reason(s) For Visit Diagnoses Date Provider Providers Copied on Encounter [facility], [id number], tel:[phone] [facility] No Information 0- 5 Aris Mendoza. . Referring Provider: Rajat Carlos, [address] [place], [address]. tel:[phone] [facility], [address], [id number], tel:[phone] [facility] No Information Jul-1 3-202 5 Hurst Reji. . Referring Provider: Rajat Carlos, [address] [facility], [place], [address]. tel:[phone] [employer] [facility], [address], [id number], tel:[phone] [place] [facility] [place] No Information Fly-0 6-202 5 Hurst Reji. . Referring Provider: Rajat Carlos, [address] [facility], [place], [address]. tel:[phone] [facility], [address], [id number], [place] tel:[phone] [place] [facility] [place] No Information June-3 0-202 5 Hurst Reji. . Referring Provider: Rajat Carlos, [address] [facility], [place], [address]. tel:[phone] [employer] [facility], [address], [id number], [place] tel:[phone] [facility] No Information June-1 9- 5 Hurst Reji. . Referring Provider: Rajat Carlos, [address] [facility], [place], [address]. tel:[phone] [facility], [address], [id number], tel:[phone] [place] No Information May-0 7-202 5 Khadar Víctor. . Referring Provider: Rafael Dela Cruz, [address] [place] [address], [place], [address]. tel:[phone] [facility], [address], [id number], [place] tel:[phone] [place] No Information May-0 2-202 5 Khadar Renee. . Referring Provider: Rafael Dela Cruz, [address] [place] [address] [address] , [place], [address]. tel:[phone] [facility], [address] [place], [id number], [place] tel:[phone] [place] No Information Apr-3 0-202 5 Khadar Víctor. . Referring Provider: Rafael Dela Cruz [address] [place] [address] F, [place], [address]. tel:[phone], [address] [place] [address], [id number], [place] tel:[phone] [place] No Information Apr-2 5-202 5 Khadar Víctor. . Referring Provider: Rafael Dela Cruz [address] [place] [address] [address], [place], [address]. tel:[phone] [employer] [facility], [address] [place] [address], [place], [place], [id number], [place] tel:[phone] [place] No Information Apr-1 1-202 5 Khadar Víctor. . Referring Provider: Rafael Dela Cruz [address] [place] [address] F, [place], [address]. tel:[phone], [address] [place] [address], [id number], [place] tel:[phone] [place] No Information Apr-0 9-202 5 Khadar Víctor. . Referring Provider: Rafael Dela Cruz [address] [place] [address] F, [place], [address]. tel:[phone], [address] [place] [address], [id number], [place] tel:[phone] [place] No Information Apr-0 4-202 5 Khadar Víctor. . Referring Provider: Rafael Dela Cruz [address] [place] [address] [address], [place], [address]. tel:[phone] [employer] [facility], [address] [place] [address], [place], [id number], [place] tel:[phone] [place] No Information Apr-0 2-202 5 Khadar Víctor. . Referring Provider: Rafael Dela Cruz [address] [place] [address] [address], [place], [address]. tel:[phone], [address] [place] [address], [place], [place], [id number], [place] tel:[phone] [place] No Information Mar-2 8- 5 Khadar Víctor. . Referring Provider: Rafael Dela Cruz [address] [place] [address] [address], [facility] [place], [address]. tel:[phone] [employer] [facility], [address] [address], [place], [id number], [place] tel:[phone] [place] No Information Mar-2 6- 5 Khadar Víctor. . Referring Provider: Rafael Dela Cruz [address] [place] [address] [address], [place], [address]. tel:[phone], [address] [address], [place], [place], [id number], [place] tel:[phone] [place] No Information Mar-2 - 5 Khadar Víctor. . Referring Provider: Rafael Dela Cruz [address] [place] [address] [address], [facility] [place], [address]. tel:[phone], [address], [id number], [place] tel:[phone] [place] No Information Mar-1 5 Khadar Víctor. . Referring Provider: Rafael Dela Cruz [address] [place] [address] F, [place], [address]. tel:[phone], [address] [address], [place], [id number], [place] tel:[phone] [place] No Information Mar-1 4- 5 Hkadar Víctor. . Referring Provider: Rafael Dela Cruz [address] [place] [address] [address], [facility] [place], [address]. tel:[phone], [address] [facility] [address], [place], [place], [id number], [place] tel:[phone] [place] No Information Mar-1 2-202 5 Khadar Víctor. . Referring Provider: Rafael Dela Cruz, [address] [place] [address] Suite , [place], [address]. tel:[phone] [facility], [address], [id number], tel:[phone] [place] No Information Mar-0 7-202 5 Khadar Renee. . Referring Provider: Rafael Dela Cruz [address] [place] [address] Suite , [place], [address]. tel:[phone] [employer] [facility], [address] [place] [address], [id number], tel:[phone] [place] No Information Mar-0 5-202 5 Khadar Víctor. . Referring Provider: Rafael Dela Cruz, [address] [place] [address] [address] , [place], [address]. tel:[phone] [employer] [facility], [address], [id number], tel:[phone] [facility] No Information Apr-0 4-202 1 Hurst Reji. . Referring Provider: Rajat Damon, [address] [place] [address], [address]. tel:[phone] [facility], [address] [place] [address], [id number], tel:[phone] [facility] No Information 0 6- 1 Hurst Reji. . Referring Provider: [employer] [facility], [address], [id number], tel:[phone] [facility] No Information -202 0 Hurst Reji. . Referring Provider: [employer] [facility], [address], [id number], tel:[phone] [facility] No Information 0 7-202 0 Hurst Reji. . Referring Provider: [employer] [facility], [address], [id number], tel:[phone] [place] [facility] [place] No Information Sep-2 3-202 0 Hurst Reji. . Referring Provider: [employer] [facility], [address], [id number], tel:[phone] [place] [facility] [place] No Information Sep-1 8-202 0 Hurst Reji. . Referring Provider: [employer] [facility], [address], [id number], tel:[phone] [place] [facility] [place] No Information Sep-1 6-202 0 Hurst Reji. . Referring Provider: [employer] [facility], [address], [id number], tel:[phone] [place] [facility] [place] No Information Sep-1 1-202 0 Hurst Reji. . Referring Provider: [employer] [facility], [address], [id number], tel:[phone] [place] [facility] [place] No Information Sep-0 8-202 0 Hurst Reji. . Referring Provider: [employer] [facility], [address], [id number], tel:[phone] [place] [facility] [place] No Information Sep-0 4-202 0 Hurst Reji. . Referring Provider: [employer] [facility], [address], [id number], tel:[phone] [place] [facility] [place] No Information Sep-0 2-202 0 Hurst Reji. . Referring Provider: [employer] [facility], [address], [id number], tel:[phone] [place] [facility] [place] No Information Aug-2 8-202 0 Hurst Reji. . Referring Provider: [employer] [facility], [address] [place] [address] [address], [id number], tel:[phone] [facility] No Information 0 Hurst Reji. . Referring Provider: [employer] [facility], [address], [id number], tel:[phone] [facility] No Information 0 Hrust Reji. . Referring Provider: [employer] [facility], [address] [place] [address], [id number], tel:[phone] [facility] No Information 0 Hurst Reji. . Referring Provider: [employer] [facility], [address] [place] [address], [id number], tel:[phone] [facility] No Information 0 Hurst Reji. . Referring Provider: [employer] [facility], [address], [id number], tel:[phone] [facility] No Information 0 Hurst Reji. . Referring Provider: [employer] [facility], [address], [id number], tel:[phone] [facility] No Information 0 Hurst Reji. . Referring Provider: [employer] [facility], [address] [facility], [id number], tel:[phone] [facility] No Information 0 0 Hurst Reji. . Referring Provider: [employer], [address] [place] [address], [id number], tel:[phone] [place] [facility] [place] No Information Apr-1 7-202 0 Hurst Reji. . Referring Provider: [employer]. [facility], [address], [id number], tel:[phone] [place] [facility] [place] No Information Apr-0 9-202 0 Hurst Reji. . Referring Provider: [facility] [employer], [address], [id number], tel:[phone] [place] [facility] [place] No Information Apr-0 6-202 0 Hurst Reji. . Referring Provider: [facility] [employer] [facility], [address] [place] [address], [id number], tel:[phone] [place] [facility] [place] No Information Apr-0 2-202 0 Hurst Reji. . Referring Provider: [facility] [employer], [address], [id number], tel:[phone] [place] [facility] [place] No Information Mar-3 0-202 0 Hurst Reji. . Referring Provider: Osito [place]. [facility], [address], [id number], tel:[phone] [place] [facility] [place] No Information Mar-2 6-202 0 Hurst Reji. . Referring Provider: [employer] [facility], [address], [id number], tel:[phone] [place] [facility] [place] No Information Mar-2 4-202 0 Hurst Reji. . Referring Provider: [employer], [address], [id number], tel:[phone] [place] [facility] [place] No Information Mar-1 9-202 0 Hurst Reji. . Referring Provider: [employer], [address], [id number], tel:[phone] [place] [facility] [place] No Information 0 Hurst Reji. . Referring Provider: [employer] [facility], [address] [place] [address], [id number], tel:[phone] [place] [facility] [place] No Information 9 Hurst Reji. . Referring Provider: Roni Moore, [address] [place] [address], [place], [address] . tel:[phone] [facility], [address] [place] [address], [id number], tel:[phone] [place] [facility] [place] No Information 9 Hurst Reji. . Referring Provider: Roni Moore [address] [place] [address], [place], [address] . tel:[phone], [address], [id number], tel:[phone] [place] [facility] [place] No Information 9 LaCamera Gabriela . . Referring Provider: Roni Moore [address] [place] [address], [place], [address] . tel:[phone], [facility] [address], [id number], tel:[phone] [place] [facility] [place] No Information 9 Hurst Reji. . Referring Provider: Roni Moore [address] [place] [address], [place], [address] . tel:[phone], [address] [place] [address], [id number], tel:[phone] [place] [facility] [place] No Information 9 Hurst Reji. . Referring Provider: Roni Moore [address] [place] [address], [place], [address] . tel:[phone], [address] [place] [address], [id number], tel:[phone] [place] [facility] [place] No Information 2 4-201 9 Hurst Reji. . Referring Provider: Roni Moore, [address] [place] [address], [place], [address] . tel:[phone], [address] [place] [address], [place], [place], [id number], [place] tel:[phone] [place] [facility] [place] No Information -201 9 Hurst Reji. . Referring Provider: Roni Moore, [address] [place] [address], [place], [address] . tel:[phone], [address] [place] [address], [id number], [place] tel:[phone] [place] [facility] [place] No Information 5201 9 Hurst Reji. . Referring Provider: Roni Moore [address] [place] [address], [place], [address] . tel:[phone], [address] [place] [address], [id number], [place] tel:[phone] [place] [facility] [place] Low back pain Aug-1 0-201 9 Jose Roberto Tona. . Referring Provider: Roni Moore [address] [place] [address], [place], [address] . tel:[phone], [address] [place] [address], [place], [place], [id number], tel:[phone] [place] [facility] [place] Low back pain Henrry-0 3-201 9 Hurst Reji. . Referring Provider: Roin Moore [address] [place] [address], [place], [address] . tel:[phone] [facility], [address] [place] [address], [id number], tel:[phone] [place] [facility] [place] Low back pain Henrry-0 1-201 9 Hurst Reji. . Referring Provider: Roni Moore, [address] [place] [address], [place], [address] . tel:[phone], [address] [place] [address], [id number], [place] tel:[phone] [place] [facility] [place] Low back pain Fly-2 6-201 9 Hurst Reji. . Referring Provider: Roni Moore [address] [place] [address], [place], [address] . tel:[phone] [facility], [address] [place] [address], [id number], tel:[phone] [place] [facility] [place] Low back pain Fly-2 4-201 9 Hurst Reji. . Referring Provider: Roni Moore [address] [place] [address], [place], [address] . tel:[phone] [facility], [id number], tel:[phone] [place] [facility] [place] Low back pain Fly-1 9-201 9 Hurst Reji. . Referring Provider: Roni Moore [address] [place] [address], [place], [address] . tel:[phone] [facility], [id number], tel:[phone] [place] [facility] [place] Low back pain Fly-1 7-201 9 Hurst Reji. . Referring Provider: Roni Moroe [address] [place] [address], [place], [address] . tel:[phone] Family History Family Member Type Diagnosis Age At Onset No Information Payers Payer name Insurance type Covered democrat ID Sophia belle(s) [facility] [id number] Social History Type Description Quantity Date Captured Comments Sex Male Smoking Status No Information Chief Complaint And Reason For Visit No Information Reason For Referral Reason For Referral No Information History Of Present Illness Encounter Date Complaint History Of Prese nt Illness No Information Functional Status Date Functional Assessmen t No Information Instructions Date Instruction Additional Infor mation No Information Assessments Type Assessment Date No Information Patient Care Teams Name Effective Dates (start - stop) Status Members No Information
[2024-09-01 07:20] LABS: Hematocrit 43.4 % (42.0-52.0); Hemoglobin 14.6 g/dL (14.0-18.0); Mean Corpuscular HGB Conc 33.6 g/dl (32-36); Mean Corpuscular Hemoglobin 29.4 pg (26-34); Mean Corpuscular Volume 87.5 fl (80-100); Platelet Count Result 166 k/mm3 (150-375); Red Blood Count 4.96 M/mm3 (4.6-6.20); White Blood Count 5.8 K/mm3 (4.5-10.0)
[2024-09-01 07:39] LABS: Alanine Aminotransferase 18 U/L (6-50); Albumin Level 4.2 g/dL (3.5-5.1); Alkaline Phosphatase 58 U/L (38-126); Anion Gap 6 mmol/L (4-12); Aspartate Amino Transferase 26 U/L (17-59); Bilirubin,Total 0.6 mg/dL (0.2-1.3); Blood Urea Nitrogen 24 mg/dL (9-20); Calcium 9.0 mg/dL (8.4-10.2); Carbon Dioxide 25 mmol/L (22-30); Chloride 106 mmol/L (98-107); Cholesterol 224 mg/dL (0-200); Estimated Glomerular Filt Rate 59; Glucose 100 mg/dL (65-110); HDL Direct 51 mg/dL; Potassium 4.2 mmol/L (3.4-5.0); Sodium 137 mmol/L (137-145); Total Protein 6.9 g/dL (6.3-8.2); Triglycerides 100 mg/dL (<150)
[2024-09-01 08:10] LABS: Prostate Specific Antigen 2.0 ng/mL (< OR = 4.0); Thyroid Stimulating Hormone 1.670 uIU/mL (0.465-4.680)
== END 2024-09-01 06:57 | disposition home or self-care (01) ==
LOC: ANHLAB 07:01
PROVIDERS: PCP Internal Medicine; Visit Provider Internal Medicine
DX: E78.49 Other hyperlipidemia (principal); E03.9 Hypothyroidism, unspecified; E78.5 Hyperlipidemia, unspecified; Z12.5 Encounter for screening for malignant neoplasm of prostate
CPT/HCPCS: 36415; 80053; 80061; 84153; 84443; 85027; G0103

== ENCOUNTER 2024-09-07 14:20 | Outpatient (CLI) | payer OTHER, SELFPAY ==
--- NOTE | ~2024-09-07 | XR_ITS ---
EXAMINATION: XR chest 2V Exam Date/Time: 09/07/2024 14:40 CDT HISTORY: R05.9 - Cough x 1 year, hx of high bp Comparison: 01/20/2011. RESULT: Lines, tubes, and devices: Cholecystectomy clips. Lungs and pleura: Clear. Cardiomediastinal silhouette: Stable. Other: No acute osseous or upper abdominal finding. IMPRESSION: No acute cardiopulmonary process. Reviewed, dictated and finalized at location K.
--- OUTSIDE RECORDS SUMMARY | 2024-09-07 14:32 | XMS_ITS | Clinical Summary ---
Author Organization [facility] Address [address] [place] [address] Care Team Providers Care Powder Blender Name Role Phone Unavailable Primary Care Provider [...]
--- OUTSIDE RECORDS SUMMARY | 2024-09-07 14:32 | XMS_ITS | Clinical Summary ---
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
--- OUTSIDE RECORDS SUMMARY | 2024-09-07 14:32 | XMS_ITS | Clinical Summary ---
Author Organization [facility] Address [address] [place] [address] Care Team Providers Care Corporate Legal Assistant Name Role Phone Urban Martínez MD Unavailable [phone] Urban Martínez MD Primary Care Provider [phone] Rafael Bernal MD Unavailable Unavailable Source Comments [facility],non-owned Affiliates and Associated Physician Practices is amultiple site organization consisting of ambulatory clinics and hospital sitesin [place], [place], [place]. This disclosure is being madepursuant to the Care Everywhere program and may not contain all information available regarding this patient. Last updated 17.[facility] Allergies No known active allergies Medications * [...] Take 325 mg by mouth daily. 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 Not on file Not on file Not on arlin e Last Filed Vital Signs Vital Sign Reading Time Taken Comments Blood Pressure 125/85 01/05/2012 9:00 AM CASINO FLOORPERSON Pulse 52 01/05/2012 9:00 AM CASINO FLOORPERSON Temperature 36.8 C (98.2 F) 12/20/2009 9:23 PM CASINO FLOORPERSON Respiratory Rate 18 01/05/2012 7:34 AM CASINO FLOORPERSON Oxygen Saturation 96% 01/05/2012 8:50 AM CASINO FLOORPERSON Inhaled Oxygen Concentration - - Weight 95.3 [...] patient's age to complete this topic Insurance [facility] UHC MANAGED MEDICARE ADV Care Teams Corporate Legal Assistant Relationship Specialty Start Date End Date Urban Martínez MD [address] [place] [address] PCP - General 12/20/09 Urban Martínez MD Internal Medicine 12/10/09 Rafael Bernal MD General Surgery 05/26/11
== END 2024-09-07 14:21 | disposition home or self-care (01) ==
PROVIDERS: PCP Internal Medicine; Visit Provider Internal Medicine
DX: R05.9 Cough, unspecified (principal)
CPT/HCPCS: 71046